=== PATIENT | male | born 1965 | race Caucasian/White ===

== ENCOUNTER 2018-11-26 11:10 | Emergency (ER) | payer OTHER ==
[~2018-11-26] VITALS: Ht 177.8 cm; Wt 79.5 kg
[2018-11-26 11:15] VITALS: BP 128/83
--- NOTE | 2018-11-26 11:20 | NUR ---
PT AMBULATED TO LOBBY AT THIS TIME W/ VSS
--- NOTE | 2018-11-26 12:13 | NUR ---
PT TO ER BED 8
--- NOTE | 2018-11-26 12:22 | NUR ---
BIB SELF TO THE ED WITH THE CHIEF C/O HEADACHE FOR A WEEK TAKING IBUPROFEN AND EXCEDRIN FOR HEADACHE. LAST TIME TAKEN EXCEDRIN WAS 0800 AM THIS MORNING. REPORTS DIZZINESS. DENIES BLURRY VISION. DENIES N/V/D. PT HAD STROKE IN 2009 PER PT. AMBULATORY. 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 DENIES FEVER. PT NOTED WITH ITCHY RASHES ON UPPER CHEST, NECK AND BACK. DENIES SOB OR DIFFICULTY BREATHING. LUNGS CLEAR. STATES HEADACHE OF 7/10 AT THIS TIME.
[2018-11-26 13:00] VITALS: BP 124/68
--- NOTE | 2018-11-26 13:00 | NUR ---
Patient discharged with v/s stable. Written and verbal after care instructions given and explained. Patient alert, oriented and verbalized understanding of instructions. Ambulatory with steady gait. All questions addressed prior to discharge. ID band removed. Patient advised to follow up with PMD. Rx of WINDY given. Patient educated on indication of medication including possible reaction and side effects. Opportunity to ask questions provided and answered.
== END 2018-11-26 13:00 | disposition home or self-care (01) ==
LOC: MED 11:10
DX: R51 Headache (principal); G47.00 Insomnia, unspecified; F43.9 Reaction to severe stress, unspecified; Z86.73 Personal history of transient ischemic attack (TIA), and cerebral infarction without residual deficits
CPT/HCPCS: 99283

== ENCOUNTER 2020-09-29 20:39 | Emergency (ER) | payer SELFPAY ==
[~2020-09-29] VITALS: Ht 180.3 cm; Wt 77.1 kg
[2020-09-29 20:45] VITALS: BP 118/78
--- NOTE | 2020-09-29 20:45 | NUR ---
TO BED AMBULATORY
--- NOTE | 2020-09-29 20:59 | NUR ---
DR. RADFORD AT BEDSIDE EXAMINING PATIENT
--- NOTE | 2020-09-29 20:59 | NUR ---
XRAY AT BEDSIDE
--- NOTE | 2020-09-29 21:09 | NUR ---
XYLOCAINE W EPI PLACED AT BEDSIDE FOR ADMINISTRATION BY JEFERSON.
[2020-09-29] MEDS: cephALEXin 500 MG CAP PO ONE (21:14)
--- NOTE | 2020-09-29 21:25 | NUR ---
PROCEDURE SET UP COMPLETED AT BEDSIDE. ERMD ADMINISTERED XYLOCAINE.
[2020-09-29] MEDS: LIDOCAINE/EPI 1% 1:100000 20 ML VIAL INJ ONE (21:30)
[2020-09-29] MEDS: HYDROcodone/APAP 5/325 MG 1 TAB TAB PO ONE (21:40)
[2020-09-29] MEDS ORDERED: CEPH500T PO ×2 (23:07→23:40)
[2020-09-29] MEDS ORDERED: ACET-9527 PO (23:10)
[2020-09-29] MEDS ORDERED: IBUP-2213 PO ×2 (23:11→23:40)
[2020-09-29] MEDS: BACITRACIN OINT 500 UNITS/GM PKT TP ONE (23:21)
[2020-09-29 23:40] VITALS: BP 119/73
--- NOTE | 2020-09-29 23:40 | NUR ---
Patient discharged with v/s stable. Written and verbal after care instructions given and explained. Patient alert, oriented and verbalized understanding of instructions. Ambulatory with steady gait. All questions addressed prior to discharge. ID band removed. Patient advised to follow up with PMD. Rx of CEPHALEXIN, IBUPROFEN given. Patient educated on indication of medication including possible reaction and side effects. Opportunity to ask questions provided and answered.
== END 2020-09-29 23:40 | disposition home or self-care (01) ==
LOC: MED 20:39
DX: S62.605B Fracture of unspecified phalanx of left ring finger, initial encounter for open fracture (principal); S61.305A Unspecified open wound of left ring finger with damage to nail, initial encounter; W23.0XXA Caught, crushed, jammed, or pinched between moving objects, initial encounter; Y93.89 Activity, other specified; Y92.89 Other specified places as the place of occurrence of the external cause; Y99.8 Other external cause status
CPT/HCPCS: 11760; 73140; 99284; J2001